=== PATIENT | female | born 1950 | race Caucasian/White ===

== ENCOUNTER 2016-06-26 11:00 | Emergency (ER) | payer OTHER ==
[~2016-06-26] VITALS: Ht 157.5 cm; Wt 74.8 kg
--- NOTE | 2016-06-26 11:43 | ED GI/GU/ABDOMINAL COMPLAINT ---
History of Present Illness General Chief Complaint: Female Urogenital Problems Stated Complaint: KIDNEY STONE REMOVED YEST, ?NEEDS CATHETER Source: patient, family, PCP Exam Limitations: no limitations Vital Signs & Intake/Output Vital Signs & Intake/Output Vital Signs Date Time Temp Pulse Resp B/P B/P Pulse O2 O2 Flow FiO2 Mean Ox Delivery Rate 06/26 1347 98.0 90 18 133/70 98 Room Air 06/26 1112 98.6 95 18 108/76 97 Room Air Allergies Coded Allergies: codeine (Intermediate, NAUSEA/ VOMITTING 06/26/16) Triage Note: TRIAGE: PATIENT TO ER FROM HOME S/P KIDNEY STONE REMOVAL TUESDAY, REPORTS HAVING CONSTANT FLUID SEEPING FROM SITE; FLUID NOTED LIGHT PINK PER PATIENT. 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 TAKING DETROL LA 4MG 1 PO DAILY. Triage Nurses Notes Reviewed? yes ? N Is pt currently ? No HPI: Patient had a stent placed for kidney stone and required percutaneous nephrostomy tube. The site with the tube was continue to drain urine. Patient saw her urologist yesterday who felt that it was probably reflux of urine out from the bladder causing the urine to continue to leak out from the incision site. He had prescribed her medication to help with bladder spasms. She called him again this morning stating that the urine continued to leak out of her back so she was sent to the emergency room for Mcghee catheter. He called the emergency room requesting a Mcghee catheter to completely drain the bladder to stop the reflux of the urine. Patient is complaining of a pressure sensation over her suprapubic area that has been constant since the stent placement. The stent was evaluated yesterday and was found to be in place. There are no fevers or chills. The pain is 6 out of 10. There is no radiation. There is no aggravating or mitigating factors. Past History Travel History Traveled to [place] past 21 day No Medical History Any Pertinent Medical History? 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 No Review of Systems Review of Systems Constitutional: Reports: no symptoms. EENTM: Reports: no symptoms. Respiratory: Reports: no symptoms. Cardiovascular: Reports: no symptoms. GI: Reports: see HPI. Genitourinary: Reports: see HPI. Musculoskeletal: Reports: no symptoms. Skin: Reports: no symptoms. Neurological/Psychological: Reports: no symptoms. Hematologic/Endocrine: Reports: no symptoms. Immunologic/Allergic: Reports: no symptoms. All Other Systems: Reviewed and Negative Physical Exam Physical Exam General Appearance: well developed/nourished, alert, awake Head: atraumatic, normal appearance Eyes: Bilateral: PERRL, EOMI. Ears, Nose, Throat, Mouth: hearing grossly normal, moist mucous membrane Neck: normal inspection, supple, full range of motion Respiratory: normal breath sounds, chest non-tender, no respiratory distress, lungs clear Cardiovascular: regular rate/rhythm, normal peripheral pulses Gastrointestinal: normal bowel sounds, soft, non-tender, no organomegaly Back: SLIGHT URINE DRAINAGE FROM INCISION SITE Extremities: normal range of motion Neurologic/Psych: no motor/sensory deficits, awake, alert, oriented x 3, normal gait, normal mood/affect Skin: normal color, warm/dry Core Measures ACS in differential dx? No Severe Sepsis Present: No Septic Shock Present: No Progress Differential Diagnosis: UTI/pyelo, BLADDER SPAMS Plan of Care: Orders Procedure Date/time Status Mcghee, Insertion/Removal/Asses 06/26 1152 Active CULTURE,URINE 06/26 1152 Active Microbiology 06/26 1251 URINE ROUT: Urine Culture - RECD Initial ED EKG: none Departure Departure Disposition: HOME OR SELF CARE Condition: Stable Clinical Impression Primary Impression: Bladder spasm Referrals: YUNG TOUSSAINT,TRELL Jarvis (PCP/Family) Additional Instructions: KEEP CATHETER IN FOLLOW UP WITH YOUR UROLOGIST ON TUESDAY RETURN FOR ANY CONCERNS Departure Forms: Customer Survey General Discharge Information
[2016-06-26 13:47] VITALS: BP 133/70
== END 2016-06-26 14:44 ==
LOC: ERH 11:00
DX: N32.89 Other specified disorders of bladder (principal)
CPT/HCPCS: 87086

== ENCOUNTER 2017-05-15 13:50 | Emergency (ER) | payer OTHER ==
[~2017-05-15] VITALS: Ht 154.9 cm; Wt 74.8 kg
--- NOTE | 2017-05-15 15:34 | ED MVC/FALL/TRAUMA COMPLAINT ---
History of Present Illness General Chief Complaint: Fall Stated Complaint: FALL, LAC TO FOREHEAD Source: patient Exam Limitations: no limitations Vital Signs & Intake/Output Vital Signs & Intake/Output Vital Signs Date Time Temp Pulse Resp B/P B/P Pulse O2 O2 Flow FiO2 Mean Ox Delivery Rate 05/15 1605 98 Room Air 05/15 1402 99.0 92 18 136/79 97 Room Air Room Air Allergies Coded Allergies: codeine (Intermediate, NAUSEA/ VOMITTING 06/26/16) Triage Note: PT TO ED S/P TRIP AND FALL DOWN 1 CEMENT STAIR, ONTO HEAD, LACERATION NOTED TO FOREHEAD. PT DENIES LOC. NO ACTIVE BLEEDING NOTED. Triage Nurses Notes Reviewed? yes Onset: Abrupt Duration: constant Timing: single episode today Severity: moderate Severity Numbers: 5 Injuries/Fall Location: head Method of Injury: direct blow, fall Loss of Consciousness: no loss of consciousness HPI: Patient is a 66-year-old female with a past medical history of hypertension and hyperlipidemia who presents emergency room stating that earlier today while ambulating up steps there were made of concrete she tripped and fell for tricking her for head to the stairs resulting in laceration which bleeding was controlled prior to arrival, patient denies any preceding episode of lightheaded sensation or dizziness denies any loss of consciousness denies any neck or back pain or extremity pain. Patient is complaining of localized forehead pain. Tetanus is unknown no alcohol taken today (Darin Cary) Past History Travel History Traveled to [place] past 21 day No Medical History Any Pertinent Medical History? 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 No (Darin Cary) Review of Systems Review of Systems Constitutional: Reports: no symptoms. Eyes: Reports: no symptoms. Ears, Nose, Throat, Mouth: Reports: no symptoms. Respiratory: Reports: no symptoms. Cardiovascular: Reports: no symptoms. Gastrointestinal/Abdominal: Reports: no symptoms. Genitourinary: Reports: no symptoms. Musculoskeletal: Reports: no symptoms. Skin: Reports: see HPI. Neurological/Psychological: Reports: see HPI. All Other Systems: Reviewed and Negative (Darin Cary) Physical Exam Physical Exam General Appearance: well developed/nourished, no apparent distress, alert Head: atraumatic Eyes: Bilateral: normal appearance, PERRL. 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 No CVA/TIA Diagnosis No Sepsis Present: No Sepsis Focused Exam Completed? No (Darin Cary) Progress Differential Diagnosis: abd injury, C/T/L spine injury, ext injury, ICH, pelvis injury, pnemothorax, spinal cord injury Plan of Care: Orders Procedure Date/time Status CT HEAD WO IV CONTRAST 05/[address] CERV SPINE WO IV CONTRAST 05/16 1523 Active Patient was in no apparent distress tetanus was updated cranial nerves intact CT scans were unremarkable, margins were revised with suture placement Discussed CT scan results with patient Diagnostic Imaging: Viewed by Me: CT Scan. Radiology Impression: no acute abnormality, no fracture Comments: PATIENT: MAICOL SORENSEN PRESENT AGE: 66 PATIENT ACCOUNT NO: [id number] : 52 LOCATION: [facility] ORDERING PHYSICIAN: Darin SAUL SERVICE DATE: 05/15/171524 EXAM TYPE: CAT - CT CERV SPINE WO IV CONTRAST; CT HEAD WO IV CONTRAST EXAMINATION: CT HEAD WITHOUT CONTRAST CT CERVICAL SPINE WITHOUT CONTRAST CLINICAL INFORMATION: 66-year-old woman with head trauma. COMPARISON: 12/12/[address] TECHNIQUE: Imaging was performed from the skull base to vertex without intravenous administration of contrast. In addition, helical noncontrast CT imaging was acquired through the cervical spine and source images were reviewed along with axial reconstructions and sagittal and coronal MPRs. DLP: 943 mGy-cm FINDINGS: HEAD: No intracranial mass, hemorrhage, or midline shift is visualized. The ventricles and sulci are age-appropriate. No extra-axial collections are identified. The paranasal sinuses and mastoid air cells are well aerated. CERVICAL SPINE: There is no evidence of acute cervical spine fracture. Vertebral bodies remain normal in height. There is loss of the normal cervical lordosis. Degenerative endplate remodeling with marginal osteophyte formation and mild to moderate loss of normal disc space is most apparent at C4-C5, C5-C6, and C6-C7. No pre- or paravertebral soft tissue abnormality is identified. Limited assessment of the lung apices is unremarkable. IMPRESSION: 1. No acute intracranial pathology. 2. No CT evidence of acute cervical spine fracture or traumatic subluxation. DICTATED BY: Lola Candelario MD DATE/TIME DICTATED:05/15/171620 PAPERBACK MACHINE OPERATOR:ASHLEY DATE/TIME TRANSCRIBED:05/15/171620 CONFIDENTIAL, DO NOT COPY WITHOUT APPROPRIATE AUTHORIZATION. <Electronically signed in Other Vendor System> SIGNED BY: Lola Candelario MD 05/15/17 163 (Darin Cary) Departure Departure Disposition: HOME OR SELF CARE Condition: Stable Clinical Impression Primary Impression: Forehead laceration Secondary Impressions: Minor head trauma Referrals: Ivette TOUSSAINT,Eduardo Jarvis (PCP/Family) Additional Instructions: As discussed begin [id number] ibuprofen for pain and inflammation, begin applying bacitracin to the region once a day for the following 4 days in the area open to improve healing. If you note signs infection redness, pain, swelling, discharge return to emergency room. Return to the emergency room IN 7 -9 days for suture removal. Once the scar begins to develop begin [id number] MEDERMA FOR SCAR HEALING Departure Forms: Customer Survey General Discharge Information (Darin Cary) PA/RECORDS AND INFORMATION MANAGER Co-Sign Statement Statement: ED Attending supervision documentation- [] I saw and evaluated the patient. I have also reviewed all the pertinent lab results and diagnostic results. I agree with the findings and the plan of care as documented in the PA's/RECORDS AND INFORMATION MANAGER's documentation. [X] I have reviewed the ED Record and agree with the PA's/RECORDS AND INFORMATION MANAGER's documentation. [] Additions or exceptions (if any) to the PAs/RECORDS AND INFORMATION MANAGER's note and plan are summarized below: [] (Demetrius Kay DO) Procedures Laceration/Wound Repair Laceration/Wound Repair: Wound Location: head, face Wound's Depth, Shape: flap, DEEP Wound Length (cm): 3 Wound Explored: clean, no foreign body removed, irrigated extensively Irrigated w/ Saline (ccs): 500 Betadine Prep? Yes Anesthesia: 1% lidocaine Volume Anesthetic (ccs): 8 Wound Repaired With: sutures Suture Size/Type: 6:0 Number of Sutures: 11 Layer Closure? No Progress: Margins were revised with suture placement, patient tolerated well, bacitracin bandage was applied (Darin Cary)
--- NOTE | 2017-05-15 16:31 | CT SCAN REPORT ---
EXAMINATION: CT HEAD WITHOUT CONTRAST CT CERVICAL SPINE WITHOUT CONTRAST CLINICAL INFORMATION: 66-year-old woman with head trauma. COMPARISON: 12/12/[address] TECHNIQUE: Imaging was performed from the skull base to vertex without intravenous administration of contrast. In addition, helical noncontrast CT imaging was acquired through the cervical spine and source images were reviewed along with axial reconstructions and sagittal and coronal MPRs. DLP: 943 mGy-cm FINDINGS: HEAD: No intracranial mass, hemorrhage, or midline shift is visualized. The ventricles and sulci are age-appropriate. No extra-axial collections are identified. The paranasal sinuses and mastoid air cells are well aerated. CERVICAL SPINE: There is no evidence of acute cervical spine fracture. Vertebral bodies remain normal in height. There is loss of the normal cervical lordosis. Degenerative endplate remodeling with marginal osteophyte formation and mild to moderate loss of normal disc space is most apparent at C4-C5, C5-C6, and C6-C7. No pre- or paravertebral soft tissue abnormality is identified. Limited assessment of the lung apices is unremarkable. IMPRESSION: 1. No acute intracranial pathology. 2. No CT evidence of acute cervical spine fracture or traumatic subluxation.
[2017-05-15 16:46] VITALS: BP 125/84
== END 2017-05-15 16:47 ==
LOC: ERH 13:50
DX: S01.81XA Laceration without foreign body of other part of head, initial encounter (principal); S09.90XA Unspecified injury of head, initial encounter; W18.09XA Striking against other object with subsequent fall, initial encounter; Y92.9 Unspecified place or not applicable; Y93.9 Activity, unspecified
CPT/HCPCS: 90471; 90714

== ENCOUNTER 2017-05-23 09:11 | Emergency (ER) | payer OTHER ==
[~2017-05-23] VITALS: Ht 154.9 cm; Wt 74.8 kg
[2017-05-23 09:14] VITALS: BP 138/82
--- NOTE | 2017-05-23 09:21 | ED SKIN/ALLERGY COMPLAINT ---
History of Present Illness General Chief Complaint: Suture Removal/Wound Recheck Stated Complaint: SUTURE REMOVAL Source: patient, old records Exam Limitations: no limitations Vital Signs & Intake/Output Vital Signs & Intake/Output Vital Signs Date Time Temp Pulse Resp B/P B/P Pulse O2 O2 Flow FiO2 Mean Ox Delivery Rate 05/23 0914 98.1 90 20 138/82 98 Room Air Allergies Coded Allergies: codeine (Intermediate, NAUSEA/ VOMITTING 06/26/16) Reconcile Medications No Known Home Medications Triage Note: PT TO ED FOR SUTURE REMOVAL TO FOREHEAD, PLACED 05/15. DENIES PAIN, NO S/S INFECTION. Triage Nurses Notes Reviewed? yes Onset: Gradual Duration: week(s): Timing: recent history Location: face HPI: 66YO female presents to ED for suture removal. Patient had laceration to forehead with stitches placed here last week. Patient states wound has been healing well. No recent bleeding, discharge, swelling, pain, headache, fevers, chills. (Shirlene Tello) Past History Travel History Traveled to [place] past 21 day No Medical History Any Pertinent Medical History? 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 No (Shirlene Tello) Review of Systems Review of Systems Constitutional: Reports: no symptoms. EENTM: Reports: no symptoms. Respiratory: Reports: no symptoms. Cardiovascular: Reports: no symptoms. GI: Reports: no symptoms. Genitourinary: Reports: no symptoms. Musculoskeletal: Reports: no symptoms. Skin: Reports: see HPI. Neurological/Psychological: Reports: no symptoms. Hematologic/Endocrine: Reports: no symptoms. Immunologic/Allergic: Reports: no symptoms. All Other Systems: Reviewed and Negative (Shirlene Tello) Physical Exam Physical Exam General Appearance: well developed/nourished, no apparent distress Head: healing laceration to midforehead with stitches in place, no erythema, tenderness, warmth, or drainage Eyes: Bilateral: normal appearance. Ears, Nose, Throat: hearing grossly normal Neck: normal inspection, supple, full range of motion Respiratory: no respiratory distress Back: normal inspection, normal range of motion Extremities: normal inspection Neurologic/Psych: awake, alert, oriented x 3 Skin: warm/dry, see healing forehead laceration as described above (Kathy SAUL,Shirlene Nesbitt) Progress Differential Diagnosis: abscess/cellulitis, laceration, suture removal, contusion Plan of Care: Wound has healed appropriately, no signs of infection or cellulitis. Stitches removed, patient tolerated procedure well. Patient really educated on signs and symptoms of skin infection. She will return with worsening symptoms or concerns. The patient agrees with the plan of care. (Shirlene Tello) Departure Departure Disposition: HOME OR SELF CARE Condition: Stable Clinical Impression Primary Impression: Visit for suture removal Referrals: Ivette TOUSSAINT,Eduardo Jarvis (PCP/Family) Additional Instructions: Begin applying Medurma scar gel next week to help reduce appearance of scar. Continue to monitor for infection such as redness, swelling, cloudy drainage from wound. Return with any of these symptoms or other concerns. Please note that there might be incidental findings in your evaluation that are unrelated to the current emergency department visit. Please notify your primary care doctor about this emergency department visit in order to obtain and review all of the testing performed so that these incidental findings can be monitored as needed. If you had an x-ray performed, please understand that some fractures may not be seen on the initial set of x-rays. If your symptoms persist you might need a repeat set of x-rays to check for such a fracture. If you had a laceration evaluated, please understand that foreign bodies such as glass or wood may not be visible to the naked eye or on plain x-rays. If the wound becomes red, swollen, increasingly more painful or if there is any drainage from the wound, please have it reevaluated by a physician for the possibility of a retained foreign body. If you're unable to follow up as outlined in the discharge instructions please return to the emergency department. Thank you for choosing the [facility] Emergency Department for your care. It was a pleasure to serve you today. Departure Forms: Customer Survey General Discharge Information Prescriptions: Current Visit Scripts No Known Home Medications (Kathy SAUL,Shirlene Nesbitt) PA/TUBE COATER Co-Sign Statement Statement: ED Attending supervision documentation- x I saw and evaluated the patient. I have also reviewed all the pertinent lab results and diagnostic results. I agree with the findings and the plan of care as documented in the PA's/TUBE COATER's documentation. [] I have reviewed the ED Record and agree with the PA's/TUBE COATER's documentation. [] Additions or exceptions (if any) to the PAs/TUBE COATER's note and plan are summarized below: [] (Cristiana TOUSSAINT,Natalio)
== END 2017-05-23 09:49 ==
LOC: ERH 09:11
DX: Z48.02 Encounter for removal of sutures (principal)